=== PATIENT | female | born 1985 | race Caucasian/White ===

== ENCOUNTER 2017-06-05 12:54 | Emergency (ER) | payer OTHER ==
[~2017-06-05] VITALS: Ht 175.3 cm; Wt 81.7 kg
[~2017-06-05 12:54] MED LIST: IBUPROFEN800 MG PO; LIDOCAINE30 G TOP; MIRENA1 EACH IY; VALIUM5 MG PO
== END 2017-06-05 13:05 | disposition home or self-care (01) ==
LOC: ED 12:54
DX: Z00.8 Encounter for other general examination (principal)

== ENCOUNTER 2017-08-19 13:20 | Emergency (ER) | payer OTHER ==
[~2017-08-19] VITALS: Ht 175.3 cm; Wt 81.7 kg
== END 2017-08-19 14:17 | disposition home or self-care (01) ==
LOC: ED 13:20
DX: M25.562 Pain in left knee (principal); Z91.040 Latex allergy status; V89.2XXA Person injured in unspecified motor-vehicle accident, traffic, initial encounter
CPT/HCPCS: 73560; 99283

== ENCOUNTER 2018-01-27 12:15 | Emergency (ER) | payer OTHER ==
[~2018-01-27] VITALS: Ht 175.3 cm; Wt 90.7 kg
[2018-01-27] MEDS ORDERED: ZOFRAN ODT4 MG PO (18:35)
[2018-01-27] MEDS ORDERED: PROTONIX40 MG PO (18:35)
[2018-01-27] MEDS ORDERED: NORCO 5-325 TA1 EACH PO (18:35)
--- NOTE | 2018-01-27 19:05 | EKG ---
[facility] [address] [facility] [place] [address] Signed Normal sinus rhythm Normal ECG No previous ECGs available Confirmed by NATE SPAIN MD ([id number]) on 01/27/2018 7:05:42 PM Electronically Signed By: NATE SPAIN MD 01/27/18 1905 PATIENT NAME: FABRIZIO PEREZ Electrocardiogram DATE OF : 89 PHYSICIAN: NATE SPAIN MD REPORT #: [id number] REPORT IS CONFIDENTIAL AND NOT TO BE RELEASED WITHOUT AUTHORIZATION
== END 2018-01-27 18:54 | disposition home or self-care (01) ==
LOC: ED 12:15
DX: R07.89 Other chest pain (principal); Z91.040 Latex allergy status
CPT/HCPCS: 71045; 76705; 80053; 83690; 84484; 85025; 85379; 93005; 93010; 96374; 96375; 99284; J1885; J2060; J2270; J2405

== ENCOUNTER 2018-03-25 14:44 | Emergency (ER) | payer OTHER ==
[~2018-03-25] VITALS: Ht 175.3 cm; Wt 90.7 kg
[~2018-03-25 14:44] MED LIST changes: +NORCO 5-325 TA1 EACH PO; +PROTONIX40 MG PO; +ZOFRAN ODT4 MG PO
[2018-03-25] MEDS ORDERED: MIRENA1 EACH (14:58)
[2018-03-25] MEDS ORDERED: BENTYL10 MG/1 ML PO (19:00)
[2018-03-25] MEDS ORDERED: ZOFRAN ODT4 MG PO (19:00)
== END 2018-03-25 19:12 | disposition home or self-care (01) ==
LOC: ED 14:44
DX: R10.32 Left lower quadrant pain (principal); Z91.040 Latex allergy status; Z79.899 Other long term (current) drug therapy
CPT/HCPCS: 74018; 74177; 80053; 81001; 83690; 84703; 85025; 96361; 96374; 96375; 99284; J1885; J2405; J7120; Q9967